=== PATIENT | female | born 1985 | race Caucasian/White ===

== ENCOUNTER → 2020-04-27 | Emergency (ER) | payer MEDICAID ==
[~2020-04-27] VITALS: Ht 170.2 cm; Wt 99.8 kg
[~2020-04-27] MED LIST: ALBUTEROL SULF 2.5 MG/0.5ML(0.5%) NEB SOLN NEB ONE; IPRATROPIUM BROM 0.5 MG/2.5ML INH SOL NEB ONE; ONDANSETRON ODT 4 MG TAB PO ONE; methylPREDNISolone SOD SUCC 125 MG/2 ML VL IV ONE
[2020-04-27 04:45] VITALS: BP 132/79
== END | disposition home or self-care (01) ==
LOC: ER 04:33
DX: J45.909 Unspecified asthma, uncomplicated (principal)
CPT/HCPCS: 71046; 94640; 96374; 99283; J2930; J7644; Q0162

== ENCOUNTER 2020-11-08 13:47 | Emergency (ER) | payer MEDICAID ==
[~2020-11-08] VITALS: Ht 167.6 cm; Wt 104.3 kg
[2020-11-08 20:15] VITALS: BP 165/87
[2020-11-08] MEDS ORDERED: ACETAMINOPHEN 500 MG TAB PO ONE (20:30)
[2020-11-08] MEDS ORDERED: ONDANSETRON ODT 4 MG TAB PO ONE (20:30)
[2020-11-08] MEDS ORDERED: LORazepam 0.5 MG TAB PO ONE (20:30)
== END 2020-11-08 23:44 | disposition home or self-care (01) ==
LOC: ER 13:47
DX: U07.1 COVID-19 (principal); F41.9 Anxiety disorder, unspecified
CPT/HCPCS: 36415; 71045; 87426; 93005; 99285; J7030; Q0162

== ENCOUNTER 2021-07-03 15:59 | Emergency (ER) | payer MEDICAID ==
[~2021-07-03] VITALS: Ht 167.6 cm; Wt 104.3 kg
[2021-07-03 16:04] VITALS: BP 156/61
[2021-07-03 16:39] LABS: Urine Bacteria FEW /hpf (None Seen); Urine Blood Negative /uL (Negative); Urine WBC 3 /hpf (0 - 5)
[2021-07-03 16:44] LABS: Basophils # (auto) 0.1 10 ^3/uL (0-0.2); Basophils % (auto) 0.6 % (0.0-2.0); Eosinophils # (auto) 0.1 10 ^3/uL (0-0.8); Eosinophils % (auto) 0.8 % (0.0-7.0); Hematocrit 41.5 % (36.0-46.0); Lymphocytes # (auto) 4.2 10 ^3/uL (0.4-5.4); Mean Corpuscular Hemoglobin 30.4 pg (28.0-32.0); Mean Corpuscular Hgb Conc. 33.8 g/dL (32.0-36.0); Mean Corpuscular Volume 89.9 fL (80.0-100.0); Monocytes # (auto) 0.8 10 ^3/uL (0-1.3); Monocytes % (auto) 5.5 % (0.0-12.0); Neutrophils # (auto) 9.2 10 ^3/uL (1.6-8.6); Neutrophils % (auto) 64.1 % (37.0-80.0); Nucleated Red Blood Cells % 0.1 %; Red Blood Cells 4.61 10^6/uL (4.0-5.20); Red Cell Distribution Width 13.8 % (11.8-14.3); White Blood Cell 14.4 10^3/uL (4.4-10.8)
[2021-07-03 17:03] LABS: Albumin 3.6 g/dL (3.4-5.0); Potassium 3.9 mmol/L (3.5-5.1)
[2021-07-03 17:17] LABS: BUN/Creatinine Ratio 16.7; Bilirubin, Total 0.9 mg/dL (0.2-1.0); Total Protein 7.5 g/dL (6.4-8.2)
== END 2021-07-03 18:33 | disposition home or self-care (01) ==
LOC: ER 15:59
DX: R10.12 Left upper quadrant pain (principal); N39.0 Urinary tract infection, site not specified; J45.909 Unspecified asthma, uncomplicated; Z88.1 Allergy status to other antibiotic agents; Z91.010 Allergy to peanuts
CPT/HCPCS: 36415; 74176; 80053; 81001; 85025

== ENCOUNTER 2022-02-23 16:10 | Emergency (ER) | payer MEDICAID ==
[~2022-02-23] VITALS: Ht 167.6 cm; Wt 111.6 kg
[2022-02-23] MEDS ORDERED: KETOROLAC TROMETH 60MG/2ML VIAL IM ONE (16:30)
[2022-02-23] MEDS ORDERED: TRAM50TA2 PO (17:57)
[2022-02-23] MEDS ORDERED: NAP500T PO (17:57)
[2022-02-23] MEDS ORDERED: CYCL-837 PO (18:05)
[2022-02-23] MEDS ORDERED: traMADol HCL 50 MG TAB PO ONE (18:30)
[2022-02-23 18:45] VITALS: BP 108/64
== END 2022-02-23 18:47 | disposition home or self-care (01) ==
LOC: ER 16:10
DX: M47.812 Spondylosis without myelopathy or radiculopathy, cervical region (principal); G44.209 Tension-type headache, unspecified, not intractable; J45.909 Unspecified asthma, uncomplicated; Z79.899 Other long term (current) drug therapy; Z88.1 Allergy status to other antibiotic agents; Z91.010 Allergy to peanuts
CPT/HCPCS: 72125

== ENCOUNTER 2022-05-07 20:31 | Emergency (ER) | payer MEDICAID ==
[~2022-05-07] VITALS: Ht 167.6 cm; Wt 108.9 kg
[~2022-05-07 20:31] MED LIST changes: -ALBUTEROL SULF 2.5 MG/0.5ML(0.5%) NEB SOLN NEB ONE; +CYCL-837 PO; -IPRATROPIUM BROM 0.5 MG/2.5ML INH SOL NEB ONE; +NAP500T PO; -ONDANSETRON ODT 4 MG TAB PO ONE; -methylPREDNISolone SOD SUCC 125 MG/2 ML VL IV ONE
[2022-05-07] MEDS ORDERED: EPIN0.1I11 IJ (22:42)
[2022-05-07] MEDS ORDERED: PRED20TA2 PO (22:42)
[2022-05-07] MEDS ORDERED: DexAMETHasone SOD PHOS 10MG/1ML VIAL INJ IM ONE (22:45)
[2022-05-07] MEDS ORDERED: FAMOTIDINE 20 MG TAB PO ONE (22:45)
[2022-05-08 00:25] VITALS: BP 140/80
== END 2022-05-08 00:28 | disposition home or self-care (01) ==
LOC: ER 20:31
DX: R21 Rash and other nonspecific skin eruption (principal); J45.909 Unspecified asthma, uncomplicated; Z79.899 Other long term (current) drug therapy; Z88.1 Allergy status to other antibiotic agents; Z91.010 Allergy to peanuts
CPT/HCPCS: 93005; 96372; 99283; J1100

== ENCOUNTER 2022-08-12 23:38 | Emergency (ER) | payer MEDICAID ==
[~2022-08-12] VITALS: Ht 167.6 cm; Wt 113.5 kg
[~2022-08-12 23:38] MED LIST changes: +EPIN0.1I11 IJ; +PRED20TA2 PO
[2022-08-13 07:00] VITALS: BP 149/80
[2022-08-13] MEDS ORDERED: FLUORESCEIN SOD OPTH TEST STRIP OP ONE (07:00)
[2022-08-13] MEDS ORDERED: CIP03OS RIGHTEYE (07:03)
[2022-08-13] MEDS ORDERED: OPHTHALMIC IRRIGATION SOLN 30ML OP ONE (07:15)
== END 2022-08-13 07:14 | disposition home or self-care (01) ==
LOC: ER 23:40
DX: S05.01XA Injury of conjunctiva and corneal abrasion without foreign body, right eye, initial encounter (principal); J45.909 Unspecified asthma, uncomplicated; Z88.1 Allergy status to other antibiotic agents; Z91.010 Allergy to peanuts; X58.XXXA Exposure to other specified factors, initial encounter; Y93.89 Activity, other specified; Y92.89 Other specified places as the place of occurrence of the external cause; Y99.8 Other external cause status

== ENCOUNTER 2022-08-29 09:00 | Outpatient (CLI) | payer MEDICAID ==
[~2022-08-29] VITALS: Ht 167.6 cm; Wt 114.3 kg
[~2022-08-29 09:00] MED LIST changes: +CIP03OS RIGHTEYE
[2022-08-29 09:28] LABS: Basophils # (auto) 0 10 ^3/uL (0-0.2); Basophils % (auto) 0.4 % (0.0-2.0); Eosinophils # (auto) 0.2 10 ^3/uL (0-0.8); Hematocrit 38.4 % (36.0-46.0); Lymphocytes # (auto) 2.2 10 ^3/uL (0.4-5.4); Lymphocytes % (auto) 23.7 % (10.0-50.0); Mean Corpuscular Hemoglobin 30.5 pg (28.0-32.0); Mean Corpuscular Hgb Conc. 33.9 g/dL (32.0-36.0); Monocytes # (auto) 0.6 10 ^3/uL (0-1.3); Monocytes % (auto) 6.2 % (0.0-12.0); Neutrophils # (auto) 6.2 10 ^3/uL (1.6-8.6); Neutrophils % (auto) 67.7 % (37.0-80.0); Red Blood Cells 4.27 10^6/uL (4.0-5.20); Red Cell Distribution Width 13.3 % (11.8-14.3); White Blood Cell 9.2 10^3/uL (4.4-10.8)
[2022-08-29 09:40] LABS: INR 0.94 (0.9-1.15); Partial Thromboplastin Time 25.4 sec (24.6-33.4)
[2022-08-29 10:09] LABS: Potassium 4.2 mmol/L (3.5-5.1)
[2022-08-29 10:16] LABS: Albumin 3.2 g/dL (3.4-5.0); BUN/Creatinine Ratio 21.6; Bilirubin, Total 0.6 mg/dL (0.2-1.0); Calcium 8.7 mg/dL (8.5-10.1); Total Protein 6.8 g/dL (6.4-8.2)
[2022-08-29] MEDS ORDERED: METO25TA36 PO (11:02)
[2022-08-29] MEDS ORDERED: FAMO20TA10 PO (11:02)
[2022-08-29] MEDS ORDERED: LORA-655 PO (11:02)
[2022-08-29] MEDS ORDERED: OMEP20TA PO (11:02)
[2022-08-29] MEDS ORDERED: NORG1TAB PO (11:02)
[2022-08-29] MEDS ORDERED: ALBUAER3 IN (11:02)
[2022-08-29] MEDS ORDERED: BUDE1AER4 IN (11:02)
== END 2022-08-29 10:07 | disposition home or self-care (01) ==
LOC: LAB 09:00 → EDSTATUS 08-31 13:45
PROVIDERS: ATTEND Internal Medicine Gastroenterology
DX: Z01.812 Encounter for preprocedural laboratory examination (principal); Z20.822 Contact with and (suspected) exposure to COVID-19; R10.12 Left upper quadrant pain; K21.9 Gastro-esophageal reflux disease without esophagitis
CPT/HCPCS: 36415; 80053; 84702; 85025; 85610; 85730; U0003

== ENCOUNTER 2022-10-22 23:32 | Emergency (ER) | payer MEDICAID ==
[~2022-10-22] VITALS: Ht 167.6 cm; Wt 115.0 kg
[~2022-10-22 23:32] MED LIST changes: +ALBUAER3 IN; +BUDE1AER4 IN; -CIP03OS RIGHTEYE; +FAMO20TA10 PO; +LORA-655 PO; +METO25TA36 PO; +NORG1TAB PO; +OMEP20TA PO
[2022-10-23] MEDS ORDERED: LORazepam 0.5 MG TAB PO ONE (01:00)
[2022-10-23] MEDS ORDERED: IPRATROPIUM BROM 0.5 MG/2.5ML INH SOL NEB ONE (01:00)
[2022-10-23] MEDS ORDERED: ALBUTEROL SULF 2.5 MG/0.5ML(0.5%) NEB SOLN NEB ONE (01:00)
[2022-10-23 02:41] VITALS: BP 120/54
== END 2022-10-23 03:39 | disposition home or self-care (01) ==
LOC: ER 23:32
DX: U07.1 COVID-19 (principal); F41.9 Anxiety disorder, unspecified; J45.909 Unspecified asthma, uncomplicated
CPT/HCPCS: 36415; 71046; 87426; 94640; 99284; J7644

== ENCOUNTER 2022-11-05 19:50 | Emergency (ER) | payer MEDICAID ==
[~2022-11-05] VITALS: Ht 167.6 cm; Wt 250.0 kg
[2022-11-05 22:19] VITALS: BP 152/91
== END 2022-11-05 22:23 | disposition home or self-care (01) ==
LOC: ER 19:51
DX: U07.1 COVID-19 (principal); R06.00 Dyspnea, unspecified; F41.9 Anxiety disorder, unspecified; J45.909 Unspecified asthma, uncomplicated; Z79.899 Other long term (current) drug therapy; Z88.1 Allergy status to other antibiotic agents; Z91.010 Allergy to peanuts
CPT/HCPCS: 71045; 93005

== ENCOUNTER 2023-12-14 09:09 | Emergency (ER) | payer MEDICAID ==
[~2023-12-14] VITALS: Ht 167.6 cm; Wt 106.9 kg
[2023-12-14 10:13] VITALS: BP 147/93; PULSE 97; RESP 18; TEMP 98.1; O2SAT 98
[2023-12-14] MEDS ORDERED: ACET-1080 PO (10:32)
[2023-12-14] MEDS ORDERED: BENZ200C64 PO (10:32)
[2023-12-14] MEDS ORDERED: CIPRSUS OT (10:32)
== END 2023-12-14 10:52 | disposition home or self-care (01) ==
LOC: ER 09:09
DX: U07.1 COVID-19 (principal); H66.91 Otitis media, unspecified, right ear; R07.89 Other chest pain; J45.909 Unspecified asthma, uncomplicated
CPT/HCPCS: 71045

== ENCOUNTER 2023-12-25 10:31 | Emergency (ER) | payer MEDICAID ==
[~2023-12-25] VITALS: Ht 167.6 cm; Wt 108.0 kg
[~2023-12-25 10:31] MED LIST changes: +ACET-1080 PO; +BENZ200C64 PO; +CIPRSUS OT
[2023-12-25 11:19] LABS: Alanine Aminotransferase 20 U/L (7-40); Albumin 4.2 g/dL (3.2-4.8); Alkaline Phosphatase 46 U/L (46-116); Anion Gap 9 (5-15); Aspartate Aminotransferase 12 U/L (13-40); BUN/Creatinine Ratio 14.7 (10.0-20.0); Bilirubin, Total 0.4 mg/dL (0.2-1.0); Blood Urea Nitrogen 10 mg/dL (9-23); Calcium 9.1 mg/dL (8.5-10.1); Carbon Dioxide 25 mmol/L (20-30); Chloride 102 mmol/L (98-107); Glucose 101 mg/dL (74-106); Potassium 4.4 mmol/L (3.5-5.1); Sodium 136 mmol/L (136-145); Total Protein 6.7 g/dL (5.7-8.2)
[2023-12-25 11:20] LABS: Basophils # (auto) 0.1 10 ^3/uL (0-0.2); Basophils % (auto) 0.4 % (0.0-2.0); Eosinophils # (auto) 0.1 10 ^3/uL (0-0.8); Eosinophils % (auto) 0.4 % (0.0-7.0); Hematocrit 41.3 % (36.0-46.0); Hemoglobin 13.6 g/dL (12.2-16.2); Lymphocytes # (auto) 1.9 10 ^3/uL (0.4-5.4); Lymphocytes % (auto) 11.8 % (10.0-50.0); Mean Corpuscular Hemoglobin 29.1 pg (28.0-32.0); Mean Corpuscular Hgb Conc. 32.9 g/dL (32.0-36.0); Mean Corpuscular Volume 88.6 fL (80.0-100.0); Monocytes # (auto) 0.9 10 ^3/uL (0-1.3); Monocytes % (auto) 5.9 % (0.0-12.0); Neutrophils % (auto) 81.5 % (37.0-80.0); Red Blood Cells 4.66 10^6/uL (4.0-5.20); Red Cell Distribution Width 13.9 % (11.8-14.3)
[2023-12-25 13:42] VITALS: BP 158/87; PULSE 75; RESP 20; TEMP 98; O2SAT 97
[2023-12-25] MEDS ORDERED: BENZ100C97 PO (13:45)
[2023-12-25] MEDS ORDERED: PROM1SOL4 PO (13:45)
[2023-12-25] MEDS ORDERED: AZIT-81 PO (13:45)
[2023-12-25] MEDS: DexAMETHasone SOD PHOS 10MG/1ML VIAL INJ IM ONE (14:18)
[2023-12-25] MEDS ORDERED: METH4PAK PO (14:24)
== END 2023-12-25 14:21 | disposition home or self-care (01) ==
LOC: ER 10:31
DX: B34.9 Viral infection, unspecified (principal); F41.9 Anxiety disorder, unspecified; J45.909 Unspecified asthma, uncomplicated
CPT/HCPCS: 36415; 71046; 80053; 85025; 96372; 99284; J1100